=== PATIENT | male | born 1985 | race Caucasian/White ===

== ENCOUNTER 2018-04-05 16:32 | Emergency (ER) | payer OTHER ==
[~2018-04-05] VITALS: Ht 182.9 cm; Wt 132.4 kg
[2018-04-05] MEDS ORDERED: HUMIRA40 MG/0.8 SUBQ (16:55)
[2018-04-05] MEDS ORDERED: VENTOLIN HFA 1818 GM INH (17:22)
[2018-04-05] MEDS ORDERED: LEVAQUIN 500 M500 MG PO (17:22)
[2018-04-05 17:28] LABS: INFLUENZA A ANTIGEN None Detected (None Detect); INFLUENZA B ANTIGEN None Detected (None Detect)
[2018-04-05 17:49] VITALS: BP 131/87
== END 2018-04-05 17:50 | disposition home or self-care (01) ==
LOC: M.ERS 16:32
PROVIDERS: Family Medicine
DX: J18.9 Pneumonia, unspecified organism (principal); L40.50 Arthropathic psoriasis, unspecified